=== PATIENT | male | born 1995 | race Caucasian/White ===

== ENCOUNTER 2025-03-27 12:28 | Emergency (ER) | payer SELFPAY ==
[~2025-03-27] VITALS: Ht 180.3 cm; Wt 63.5 kg
[2025-03-27 13:03] VITALS: BP 117/69; TEMP 97.9
[2025-03-27] MEDS ORDERED: ACETAMINOPHEN ES 500 MG TABLET ONE (14:20)
[2025-03-27] MEDS: ACETAMINOPHEN ES 500 MG TABLET PO ONE (14:27)
[2025-03-27 15:13] VITALS: O2SAT 99
== END 2025-03-27 15:50 | disposition home or self-care (01) ==
LOC: ER 12:44
DX: S92.521A Displaced fracture of middle phalanx of right lesser toe(s), initial encounter for closed fracture (principal); W22.8XXA Striking against or struck by other objects, initial encounter; Y93.89 Activity, other specified; Y92.89 Other specified places as the place of occurrence of the external cause; Y99.8 Other external cause status
CPT/HCPCS: 73660-TC